=== PATIENT | male | born 1990 | race African-American/Black ===

== ENCOUNTER 2018-01-28 01:04 | Inpatient (IN) | payer MEDICAID, OTHER ==
[~2018-01-28] VITALS: Ht 182.9 cm; Wt 81.6 kg
[~2018-01-28 01:04] MED LIST: ACNE CLEARING295 ML TP; ALBUTEROL SULF8.5 GM INH; ALBUTEROL2.5 MG/3 M HHN; ATIVAN0.5 MG ORAL; ATIVAN1 MG ORAL; ATROVENT500 MCG/2. HHN; CATAPRES0.1 MG ORAL; DULERA 200 MCG/13 GM IH; HYDROCHLOROTHIA25 MG ORAL; IBUPROFEN600 MG ORAL; LOSARTAN POTASS50 MG ORAL; NORCO 5-325 TA1 EACH ORAL; NORVIR100 MG ORAL; PREDNISONE20 MG PO; PREDNISONE50 MG ORAL; REYATAZ200 MG PO; TRUVADA1 TAB PO; VISTARIL50 MG PO; ZITHROMAX250 MG ORAL
[2018-01-28] MEDS ORDERED: Solu-MEDROL 125mg Inj IVP ONE (01:15)
[2018-01-28] MEDS ORDERED: Albuterol/Ipratropium 3ml neb HHN ONE (01:15)
--- NOTE | 2018-01-28 01:16 | Emergency Room Report ---
History of Present Illness General Chief Complaint: Asthma Source: Patient Present Illness [facility] This a 28-year-old male with history of asthma. He said last bad attack was years ago. He presents with chief complaint of severe asthma exacerbation. Onset for last couple days. He said is due to the weather changing. His inhaler was not helping. He called 911 and met them at the front. Per EMS he was wheezing and very tight they gave him a total of 10 mg of albuterol. Patient felt little bit better now. No fever or chills. Worse with exertion. Worse with lying flat. Better with his inhaler. Denies any smoking or drug use. Allergies: Coded Allergies: DOXYCYCLINE (Verified Allergy, Unknown, 10/24/13) SHOCK SWELLING Patient History Past Medical History: see triage record, old chart reviewed, asthma Past Surgical History: other Pertinent Family History: none Social History: Denies: smoking Immunizations: other Reviewed Nursing Documentation: PMH: Agreed; PSxH: Agreed Nursing Documentation-PMH Past Medical History: No History, Except For Hx Hypertension: Yes Hx Asthma: Yes Hx Cancer: No Hx Gastrointestinal Problems: No Hx Neurological Problems: No Review of Systems Eye: Denies: eye pain, blurred vision ENT: Denies: ear pain, nose congestion, throat swelling Respiratory: Reports: cough, shortness of breath, wheezing Cardiovascular: Denies: chest pain, palpitations Gastrointestinal: Denies: abdominal pain, diarrhea, nausea, vomiting Musculoskeletal: Denies: back pain, joint pain Skin: Denies: rash Neurological: Denies: headache, numbness Endocrine: Denies: increased thirst, increased urine Hematologic/Lymphatic: Denies: easy bruising All Other Systems: negative except mentioned in HPI Physical Exam Vital Signs Date Time Temp Pulse Resp B/P (MAP) Pulse Ox O2 Delivery O2 Flow Rate FiO2 01/28/18 01:07 97.7 78 19 168/125 96 Room Air 97.7 vitals with high blood pressure Sp02 EP Interpretation: reviewed, normal General Appearance: well appearing, alert, moderate distress Head: normocephalic, atraumatic Eyes: bilateral eye PERRL, bilateral eye EOMI ENT: hearing grossly normal, normal pharynx Neck: full range of motion, supple, no meningismus Respiratory: chest non-tender, respiratory distress, decreased breath sounds, accessory muscle use, wheezing Cardiovascular #1: regular rate, rhythm, no murmur Gastrointestinal: normal bowel sounds, non tender, no mass, no organomegaly, no bruit, non-distended Musculoskeletal: back normal, gait/station normal, normal range of motion Psychiatric: mood/affect normal Skin: warm/dry Procedures Critical Care Time Critical Care Time Critical care is mandated in this patient who presented with acute respiratory failure secondary to status asthmaticus. Patient require my urgent intervention to attenuate the risks of respiratory collapse which may lead to cardiovascular collapse and . Critical care time is 35 minutes excluding any reportable procedure. Critical care time included evaluation, multiple reevaluation, looking at old charts, interpreting laboratory and diagnostic data , discussing case with patient and family and consultants, and charting. Medical Decision Making Diagnostic Impression: Primary Impression: Status asthmaticus Qualified Codes: J45.52 - Severe persistent asthma with status asthmaticus Additional Impressions: Respiratory failure with hypoxia Qualified Codes: J96.01 - Acute respiratory failure with hypoxia Hypokalemia Hypertensive urgency ER Course Patient with status asthmaticus. The multiple rounds of abuse or treatment probably causing his hypokalemia. He is much improved but still wheezing. Still hypoxic without oxygen. Will admit for continual treatment. Steroids given here. Magnesium given here. I discussed the case with Dr. Sharp who will admit. Lab Results Impression labs unremarkable EKG Diagnostic Results Rate: normal Rhythm: NSR ST Segments: no acute changes Rhythm Strip Diag. Results Rhythm Strip Time: 03:58 EP Interpretation: yes Rate: 94 Rhythm: NSR, no PVC's, no ectopy Chest X-Ray Diagnostic Results Chest X-Ray Diagnostic Results : Chest X-Ray Ordered: Yes # of Views/Limited/Complete: 1 View Indication: Chest Pain EP Interpretation: Yes Interpretation: no consolidation, no effusion, no pneumothorax, no acute cardiopulmonary disease Impression: No acute disease Electronically Signed by: Eliezer Pak MD Last Vital Signs Date Time Temp Pulse Resp B/P (MAP) Pulse Ox O2 Delivery O2 Flow Rate FiO2 01/28/18 01:07 97.7 78 19 168/125 96 Room Air 97.7 Status: improved Disposition: ADMITTED INPATIENT Condition: Serious ELIEZER PAK M.D. Jan 28, 2018 01:16
[2018-01-28] MEDS ORDERED: Solu-MEDROL 125mg Inj ONE (01:29)
[2018-01-28 01:30] VITALS: BP 177/119
[2018-01-28 01:48] LABS: BASOPHILS % (AUTO) 1.4 % (0.0-2.0); HEMATOCRIT 52.3 % (42.0-52.0); HEMOGLOBIN 17.6 G/DL (14.2-18.0); LYMPHOCYTES % (AUTO) 38.4 % (20.0-45.0); MEAN CORPUSCULAR VOLUME 86 FL (80-99); MONOCYTES % (AUTO) 13.7 % (1.0-10.0); NEUTROPHILS % (AUTO) 38.5 % (45.0-75.0); PLATELET COUNT 228 K/UL (150-450); RED BLOOD COUNT 6.09 M/UL (4.70-6.10); RED CELL DISTRIBUTION WIDTH 11.7 % (11.6-14.8); WHITE BLOOD COUNT 6.3 K/UL (4.8-10.8)
[2018-01-28 01:51] LABS: ANION GAP 9 mmol/L (5-15); BLOOD UREA NITROGEN 8 mg/dL (7-18); CALCIUM 9.2 MG/DL (8.5-10.1); CARBON DIOXIDE 29 MMOL/L (21-32); CHLORIDE 104 MMOL/L (98-107); CREATININE 1.1 MG/DL (0.55-1.30); POTASSIUM 2.8 MMOL/L (3.5-5.1); SODIUM 141 MMOL/L (136-145)
[2018-01-28] MEDS ORDERED: Albuterol ud Inhalation HHN ONE (02:15)
[2018-01-28 03:00] VITALS: BP 157/107
[2018-01-28 03:36] LABS: APPEARANCE,URINE CLEAR; BILIRUBIN, URINE NEGATIVE (NEGATIVE); COLOR,URINE PALE YELLOW; GLUCOSE, URINE (UA) NEGATIVE (NEGATIVE); KETONES,URINE NEGATIVE (NEGATIVE); LEUKOCYTE ESTERASE ,URINE NEGATIVE (NEGATIVE); NITRITE,URINE NEGATIVE (NEGATIVE); PH,URINE 8 (4.5-8.0); PROTEIN,URINE 2+ (NEGATIVE); UROBILINOGEN,URINE NORMAL MG/DL (0.0-1.0)
[2018-01-28 04:25] VITALS: BP 163/110
[2018-01-28] MEDS ORDERED: AMLODIPINE BESY10 MG ORAL (04:31)
[2018-01-28 05:49] VITALS: BP 153/109
[2018-01-28] MEDS: Solu-MEDROL 40mg Inj IVP SCH ×2 (06:19→12:16)
[2018-01-28] MEDS: Albuterol/Ipratropium 3ml neb HHN SCH ×2 (07:48→10:43)
[2018-01-28 08:00] VITALS: BP 151/100
[2018-01-28 12:00] VITALS: BP 158/101
--- NOTE | 2018-01-28 12:10 | Diagnostic Imaging Report ---
Indication: Reason For Exam: SOB Technique: One view of the chest Comparison: 09/20/2012 Findings: Lungs and pleural spaces are clear. Heart size is normal . No significant interim change Impression: No acute process
--- NOTE | 2018-01-28 14:15 | History and Physical Report ---
DATE OF ADMISSION: 01/28/2018 HISTORY OF PRESENT ILLNESS: This is a 28-year-old male with a history of asthma. He was brought in with acute exacerbation of bronchial asthma by paramedics to the emergency room. The patient was last seen here in 2012 with similar problems. He also has history of hypertension and HIV positivity. The patient received breathing treatments in the emergency room and when he failed to improve in the emergency room, he was admitted to the hospital for subsequent management and care. PAST MEDICAL HISTORY: HIV positivity, hypertension, and bronchial asthma. ALLERGIES: . HOME MEDICATIONS: The patient reports he is taking losartan, Dulera, Xopenex, and two medications for HIV. PAST SURGICAL HISTORY: None reported. FAMILY HISTORY: Noncontributory. REVIEW OF SYSTEMS: Denies any headaches, hematemesis, melena, or hematochezia. PHYSICAL EXAMINATION: VITAL SIGNS: Blood pressure is 160/100, heart rate is 94, respiratory rate 18, afebrile, and O2 saturation 94% on room air. GENERAL: Reveals a 28-year-old male. HEENT: Unremarkable. LUNGS: Exam shows at this time clear breath sounds bilaterally with no rales. ABDOMEN: Soft. EXTREMITIES: There is no edema. NEUROLOGIC: Nonfocal. LABORATORY AND DIAGNOSTIC DATA: Lab testing shows normal CBC and BMP except potassium of 2.8, which has been replaced in the emergency room. He will receive another 40 mEq today per my order. Urine tox positive for marijuana. IMPRESSION: 1. Marijuana use. 2. Asthma. 3. HIV. 4. Hypertension. DISCUSSION: The patient has received steroids, magnesium, and fluid in the emergency room. The patient significantly better after receiving treatment as well. On my assessment, he is no longer wheezing well on room air. At this point, discharged him with prescriptions for oral p.o. steroid taper as well as antibiotic Levaquin. He states he has his home medications at home, which he will continue. We will follow as outpatient with regular physician. Aidan Sharp M.D. DR: DAVINA JOB#: [id number] CC:
--- NOTE | 2018-01-28 15:47 | Cardiology Report ---
APPROVED REPORT EKG Measurement Heart [id number] Normal sinus rhythm Rightward axis Moderate voltage criteria for LVH, may be normal variant Prolonged QT Abnormal ECG
--- NOTE | 2018-01-31 13:09 | Discharge Summary ---
Discharge Summary Discharge Summary _ DATE OF ADMISSION: 01/28/2018 DATE OF DISCHARGE: 01/28/2018 REASON FOR ADMISSION: 28 years old male with past medical history of asthma, HIV, hypertension, was brought to emergency department with acute exacerbation of bronchial asthma. Laboratory workup revealed no leukocytosis, stable hemoglobin and hematocrit, stable renal parameters. Potassium 2.8. Urine toxicology screen was positive for marijuana. Chest x-ray revealed no acute cardiopulmonary pathology. Patient received nebulizing treatment in emergency department along with IV steroids , but failed to improve and was admitted to the hospital for subsequent management and care with diagnoses off asthma exacerbation, marijuana use, HIV status, hypertension. HOSPITAL COURSE: Patient admitted to monitored floor. Patient was continued on IV steroids and empiric antibiotic. Nebulizing treatment with bronchodilators provided around the clock and as needed. Supplemental oxygen provided as needed to keep pulse oximetry above 92%. Patient was on IV hydration. Potassium was replaced. Home medications resumed. Blood pressure was closely monitored. Patient clinically stabilized . No further wheezing . Patient was stable for discharge home on oral antibiotics, oral steroids. Patient had inhalers at home . Patient was encouraged compliance with medication regimen. Due to rapid and unexpected improvement in patient's condition, the patient was discharged in one day. FINAL DIAGNOSES: Asthma exacerbation Hypertension HIV status Hypokalemia Marijuana use DISCHARGE MEDICATIONS: See Medication Reconciliation list. DISCHARGE INSTRUCTIONS: Patient was discharged home Follow up with primary care provider in one week. I have been assigned to dictate discharge summary for this account. I was not involved in the patient's management. Kelly Jernigan NP Jan 31, 2018 13:09
== END 2018-01-28 13:35 | disposition home or self-care (01) | DRG 141 ==
LOC: EDUNIT# 01:04 → EDBD 01:04 → EMR 01:28 → 2E 03:22 → EDBEDREQ 03:33
DX: J45.901 Unspecified asthma with (acute) exacerbation (principal); B20 Human immunodeficiency virus [HIV] disease; I10 Essential (primary) hypertension; E87.6 Hypokalemia; F12.90 Cannabis use, unspecified, uncomplicated
CPT/HCPCS: 36415; 71045; 80048; 80307; 81001; 85025; 93005; 94640; 94664; 96365; 96366; 96376; 99291; J7620; J8499